=== PATIENT | female | born 1970 | race Caucasian/White ===

== ENCOUNTER → 2018-10-15 | Outpatient (CLI) | payer OTHER ==
--- NOTE | 2018-10-15 19:11 | XR ---
EXAMINATION TYPE: XR chest 2V DATE OF EXAM: 10/15/2018 COMPARISON: 03/27/2015 HISTORY: 48-year-old female wheezing, smoker, R92.8. TECHNIQUE: PA and lateral views FINDINGS: The cardiomediastinal silhouette, aorta, and pulmonary vasculature are within normal limits. Unable t o exclude a right basilar nodule versus summation artifact. Otherwise, lungs and pleural spaces are c lear. IMPRESSION: No acute cardiopulmonary process. However, unable to exclude a right basilar pulmonary nodule versus summation artifact. Contrast enhanced CT chest can further evaluate especially given the patient's sm oking history.
--- NOTE | 2018-10-18 09:25 | MM ---
Reason for exam: screening (asymptomatic). Last mammogram was performed 3 years and 2 months ago. History: Family history of premenopausal breast cancer in paternal aunt at age 40. Benign US right guided mammotome of the right breast, July 24, 2005. Physical Findings: A clinical breast exam by your physician is recommended on an annual basis and results should be correlated with mammographic findings. MG 3D Screening Mammo W/Cad Bilateral CC and MLO view(s) were taken. XCCL view(s) were taken of the right breast. Prior study comparison: August 03, 2015, bilateral MG 3d screening mammo w/cad. June 09, 2014, bilateral MG screening mammo w CAD. The breast tissue is heterogeneously dense. This may lower the sensitivity of mammography. There are stable left upper outer quadrant middle depth masses x 2. There are two adjacent large right upper outer quadrant middle depth masses, likely cysts. There are also two smaller right breast masses that appear new. The first in the right upper outer quadrant 5cm from nipple measuring 4mm and the second in the right lower inner quadrant measuring 3mm, 6-7cm from nipple. No suspicious abnormality in the left breast. Right biopsy marker noted. ASSESSMENT: Incomplete: need additional imaging evaluation, BI-RAD 0 RECOMMENDATION: Ultrasound of the right breast. [facility] will attempt to contact patient to return for ultrasound.
== END | disposition home or self-care (01) ==
LOC: RADMAMWWP 14:37
PROVIDERS: ATTEND Internal Medicine Geriatric Medicine
DX: Z12.31 Encounter for screening mammogram for malignant neoplasm of breast (principal); R05 Cough
CPT/HCPCS: 71046; 77063; 77067

== ENCOUNTER → 2018-10-19 | Outpatient (CLI) | payer OTHER ==
--- NOTE | 2018-10-19 08:20 | USB ---
Reason for exam: additional evaluation requested from abnormal screening. History: Family history of premenopausal breast cancer in paternal aunt at age 40. Benign US right guided mammotome of the right breast, July 24, 2005. Physical Findings: Nurse Summary: right breast palpable 11 o'clock, 1 x 0.5cm, movable, tender (nurse ts). US Breast Workup Limited RT Right limited breast ultrasound including focal area of concern, retroareolar and axilla demonstrates a 0.4 x 0.3 x 0.5cm cystic lesion at 9 o'clock, a 2.2 x 1.4 x 1.2cm cystic lesion at 10 o'clock and a 0.2 x 0.3 x 0.3cm cystic lesion at 5 o'clock. These results were verbally communicated with the patient and result sheet given to the patient on 10/19/18. ASSESSMENT: Probably benign, BI-RAD 3 RECOMMENDATION: Ultrasound of the right breast in 6 months.
== END | disposition home or self-care (01) ==
LOC: RADUSWWP 07:31
PROVIDERS: ATTEND Internal Medicine Geriatric Medicine
DX: R92.8 Other abnormal and inconclusive findings on diagnostic imaging of breast (principal)

== ENCOUNTER → 2021-09-13 | Outpatient (CLI) | payer OTHER ==
--- NOTE | 2021-09-17 08:15 | MM ---
Reason for Exam: Screening (asymptomatic). Last mammogram was performed 2 year(s) and 11 month(s) ago. Patient History: Menarche at age 12. First Full-Term at age 18. Hysterectomy at age 45. 07/24/2005, Benign Core Biopsy on the right side. Paternal aunt had breast cancer, age 40. Risk Values: Leonila 5 year model risk: 0.9%. NCI Lifetime model risk: 7.5%. Film Views: Bilateral CC views were taken. Bilateral MLO views were taken. Prior Study Comparison: 06/09/2014 Bilateral Screening Mammogram, [facility]. 08/03/2015 Bilateral Screening Mammogram, [facility]. 10/15/2018 Bilateral Screening Mammogram, [facility]. Tissue Density: The breast tissue is heterogeneously dense. This may lower the sensitivity of mammography. Findings: Analyzed By CAD. Biopsy clip right breast redemonstrated. There is enlarging group of rounded raisa masses in the right breast middle depth slightly upper outer aspect measuring up to 2.9 cm in size. Stable smaller chronic nodularity in the left breast centrally on CC view. Overall Assessment: Incomplete: need additional imaging evaluation, BI-RAD 0 Management: Diagnostic Breast Ultrasound of the right breast. Targeted ultrasound right breast now. Electronically signed and approved by: Brett Claudio M.D.
== END | disposition home or self-care (01) ==
LOC: RADMAMWWP 12:55
PROVIDERS: ATTEND Obstetrics & Gynecology
DX: Z12.31 Encounter for screening mammogram for malignant neoplasm of breast (principal)
CPT/HCPCS: 77063; 77067

== ENCOUNTER 2022-04-05 22:43 | Emergency (ER) | payer BC, OTHER ==
--- NOTE | 2022-04-05 23:51 | ED ---
General Adult HPI - General Chief complaint: Extremity Injury, Lower Stated complaint: Possible clot in right ankle Time Seen by Provider: 04/05/22 23:16 Source: patient, RN notes reviewed Mode of arrival: ambulatory Limitations: no limitations - History of Present Illness Initial comments: 51-year-old female presents to the emergency department for evaluation of right lower extremity edema, worsening past 2-3 days. Has mild erythema of the right foot. No injury or trauma. Does complain of mild right calf pain. Patient states she had Covid last week and her PCP is concerned about possible DVT. Reports ongoing cough. Denies fever, chills, headache, chest pain, shortness of breath, abdominal pain, nausea, vomiting, diarrhea, and dysuria. - Related Data Allergies Allergy/AdvReac Type Severity Reaction Status Date / Time No Known Allergies Allergy Verified 04/05/22 22:55 Review of Systems ROS Statement: Those systems with pertinent positive or pertinent negative responses have been documented in the HPI. ROS Other: All systems not noted in ROS Statement are negative. Past Medical History Past Medical History: No Reported History Additional Past Medical History / Comment(s): covid - march 2022 History of Any Multi-Drug Resistant Organisms: None Reported Past Surgical History: Back Surgery, Section, Hysterectomy Past Psychological History: No Psychological Hx Reported Smoking Status: Current every day smoker Past Alcohol Use History: Rare Past Drug Use History: None Reported General Exam Limitations: no limitations General appearance: alert, in no apparent distress Respiratory exam: Present: normal lung sounds bilaterally, other (dry nonproductive cough). Absent: respiratory distress, wheezes, rales, rhonchi, stridor, chest wall tenderness Cardiovascular Exam: Present: regular rate, normal rhythm, normal heart sounds. Absent: systolic murmur, diastolic murmur, rubs, gallop, clicks GI/Abdominal exam: Present: soft, normal bowel sounds. Absent: distended, tenderness, guarding, rebound, rigid Right Upper Leg exam: Present: normal inspection, full ROM. Absent: tenderness, swelling Knee exam: Present: normal inspection, full ROM. Absent: tenderness, swelling Lower Leg exam: Present: normal inspection, full ROM, Homans' sign. Absent: swelling, erythema Ankle exam: Present: full ROM, swelling. Absent: tenderness Foot/Toe exam: Present: swelling (right foot more swollen than left; mild erythema of right foot; +2 pedal pulses bilaterally). Absent: tenderness Neurovascular tendon exam: Present: no vascular compromise Gait: observed and normal Neurological exam: Present: alert, oriented X3, CN II-XII intact Psychiatric exam: Present: normal affect, normal mood Skin exam: Present: warm, dry, intact. Absent: rash Course Vital Signs 04/05/22 04/06/22 22:45 02:48 Temperature 98.3 F 98.2 F Pulse Rate 81 75 Respiratory 18 16 Rate Blood Pressure 148/77 124/71 O2 Sat by Pulse 96 95 Oximetry - Reevaluation(s) Reevaluation #1: 04/06/22 02:28 Results were discussed with patient. Discussed discharge plan of care including follow up with PCP for further evaluation and treatment. Medical Decision Making - Medical Decision Making This is a 51-year-old female with a recent Covid illness who [facility] with complaints of right lower extremity edema and concern for DVT. Upon exam, patient is well-appearing and in no acute distress. She is able to ambulate without difficulty. She does have mild circumferential swelling of the right ankle and right calf pain. There is some mild erythema of the right foot, though not significant, nor concerning for cellulitis. +2 pedal and posttibial pulses. Patient does have a residual cough therefore chest x-ray was obtained and is unremarkable. Doppler study of the right lower extremity was negative for DVT. Patient is reassured by these findings and will follow-up with her PCP for R recheck next week. Return parameters were discussed in detail. Patient verbalizes understanding and agrees with this plan. Attending: Stacy - Radiology Data Radiology results: report reviewed, image reviewed Interpreted by me: Chest x-ray as interpreted by me shows no evidence of consolidation or infiltrate. Two-view chest x-ray was obtained. Report was reviewed in its entirety. Impression per Dr. Hunt is normal chest. No adverse change. Venous Doppler study of the right lower extremity was obtained. Report was reviewed in its entirety. Impression per Dr. Olguin is no evidence of deep vein thrombosis in the right leg. Disposition Clinical Impression: Cough, Edema of right lower extremity Disposition: HOME SELF-CARE Condition: Stable Instructions (If sedation given, give patient instructions): Leg Edema (ED) Additional Instructions: Follow up with your PCP for a recheck. Call office on Thursday. Keep legs elevated while at rest. Return to the emergency department with any new, worsening, or concerning symptoms. Is patient prescribed a controlled substance at d/c from ED?: No Referrals: Cesia Adler NPC [Primary Care Provider] - 1-2 days Time of Disposition: 02:31
--- NOTE | 2022-04-06 00:26 | US ---
EXAMINATION TYPE: US venous doppler duplex LE RT DATE OF EXAM: 04/06/2022 12:09 AM COMPARISON: NONE CLINICAL HISTORY: RLE edema. Right ankle swelling x 3 days. No hx of DVT, not on blood thinners. Pt s tates she had COVID last week SIDE PERFORMED: Right TECHNIQUE: The lower extremity deep venous system is examined utilizing real time linear array sonog best with graded compression, doppler sonography and color-flow sonography. VESSELS IMAGED: Common Femoral Vein Deep Femoral Vein Greater Saphenous Vein * Femoral Vein Popliteal Vein Small Saphenous Vein * Proximal Calf Veins (* superficial vessels) Right Leg: Negative for DVT IMPRESSION: No evidence of deep vein thrombosis in the right leg.
--- NOTE | 2022-04-06 00:37 | XR ---
EXAMINATION TYPE: XR chest 2V DATE OF EXAM: 04/06/2022 COMPARISON: 10/15/2018 HISTORY: Chest congestion TECHNIQUE: 2 views FINDINGS: Heart and mediastinum are normal. Lungs are clear. Diaphragm is normal. Bony thorax is inta ct over the vascularity is normal. IMPRESSION: Normal chest. No adverse change.
[2022-04-06 02:57] VITALS: BP 124/71; PULSE 75; RESP 16; TEMP 98.2
== END 2022-04-06 02:48 | disposition home or self-care (01) ==
LOC: EC 22:43
DX: R05.9 Cough, unspecified (principal); R60.0 Localized edema; F17.200 Nicotine dependence, unspecified, uncomplicated
CPT/HCPCS: 71046; 99284; 99285

== ENCOUNTER 2022-07-07 07:02 | Day surgery (SDC) | payer BC ==
[2022-07-01 12:40] VITALS: BMI 33.4
--- NOTE | 2022-07-06 19:27 | P.GSHP ---
History of Present Illness H&P Date: 07/06/22 Chief Complaint: Left flank pain The patient is a 51-year-old white female with no prior history of urolithiasis. For the past year, she has experienced intermittent left flank pain. CT scan shows a 6 mm left upper pole renal calculus, also seen on a plain radiograph. The patient was offered the options of observation, extracorporal shockwave lithotripsy (ESWL), and ureteroscopy with laser lithotripsy. The pros, cons, and risks of each were reviewed. She has elected to undergo ESWL and comes for this reason. - Constitutional Constitutional: Denies chills, Denies fever - Gastrointestinal Gastrointestinal: Denies nausea, Denies vomiting - Genitourinary (Female) Genitourinary: Reports flank pain, Reports kidney stones, Denies dysuria, Denies hematuria Past Medical History Past Medical History: No Reported History Additional Past Medical History / Comment(s): covid - march 2022. KIDNEY STONES History of Any Multi-Drug Resistant Organisms: None Reported Past Surgical History: Back Surgery, Section, Hysterectomy Past Anesthesia/Blood Transfusion Reactions: Postoperative Nausea & Vomiting (PONV) Smoking Status: Current every day smoker - Past Family History Mother Family Medical History: No Reported History Father History Unknown: Yes Family Medical History: Cancer Medications and Allergies Home Medications Medication Instructions Recorded Confirmed Type Ibuprofen [Motrin] 800 mg PO Q8H PRN 07/01/22 07/01/22 History Allergies Allergy/AdvReac Type Severity Reaction Status Date / Time No Known Allergies Allergy Verified 07/01/22 12:28 Surgical - Exam - General well developed, well nourished, no distress - Neck no masses, trachea midline - Abdomen Abdomen: soft, non tender, no guarding, no rigid, no rebound - Psychiatric oriented to time, oriented to person, oriented to place, speech is normal, memory intact Results - Imaging Abdominal x-ray: report reviewed, image reviewed CT scan - abdomen: report reviewed, image reviewed Assessment and Plan (1) Calculus of kidney Status: Acute Code(s): N20.0 - CALCULUS OF KIDNEY SNOMED Code(s): 10064529 Plan: Left ESWL. Patient understands risks to include anesthesia, renal contusion, perinephric hematoma, treatment failure, and [place]. She is aware of the possible need for secondary treatment.
--- NOTE | 2022-07-07 07:35 | XR ---
EXAMINATION TYPE: XR KUB DATE OF EXAM: 07/07/2022 7:18 AM CLINICAL HISTORY: Low back pain. Left-sided kidney stone. TECHNIQUE: Single supine KUB image of the abdomen is obtained. COMPARISON: None. FINDINGS: There is 6 mm round calculus upper pole left kidney. No definitive right-sided nephrolithia sis. Overall nonobstructive bowel gas pattern. Visualized osseous structures are intact. IMPRESSION: As above.
[2022-07-07] MEDS ORDERED: LIDOCAINE 1% (10MG/ML) FOR IV START INTRADERMA PRN (08:08)
[2022-07-07] MEDS ORDERED: fentaNYL (PF) 50 MCG/ML 2 ML AMP IV PRN (08:08)
[2022-07-07] MEDS ORDERED: ONDANSETRON 4 MG/2 ML VIAL IVP PRN (08:08)
[2022-07-07 08:19] VITALS: TEMP 97.1
[2022-07-07] MEDS: LACTATED RINGERS 1,000 ML IV SCH ×2 (08:25→08:28)
[2022-07-07] MEDS ORDERED: KETAMINE 10 MG/ML 20 ML VIAL ONE (08:30)
[2022-07-07] MEDS ORDERED: HYDROmorphone (PF) 1 MG/ML ONE (08:30)
[2022-07-07] MEDS ORDERED: fentaNYL (PF) 50 MCG/ML 2 ML AMP ONE (08:30)
[2022-07-07] MEDS ORDERED: PROPOFOL 10 MG/ML 20 ML VIAL IV ONE (08:30)
[2022-07-07] MEDS ORDERED: MIDAZOLAM 2 MG/2 ML VIAL ONE (08:30)
--- NOTE | 2022-07-07 09:29 | P.OP ---
Date of Procedure: 07/07/22 Preoperative Diagnosis: Left renal calculus Postoperative Diagnosis: Same Procedure(s) Performed: Left extracorporal shockwave lithotripsy (ESWL) Anesthesia: MAC Surgeon: Judson Franz Estimated Blood Loss (ml): 0 IV fluids (ml): 600 Pathology: none sent Condition: stable Disposition: PACU Indications for Procedure: The patient is a 51-year-old white female with no prior history of urolithiasis. For the past year, she has experienced intermittent left flank pain. CT scan shows a 6 mm left upper pole renal calculus, also seen on a plain radiograph. The patient was offered the options of observation, extracorporal shockwave lithotripsy (ESWL), and ureteroscopy with laser lithotripsy. The pros, cons, and risks of each were reviewed. She has elected to undergo ESWL and comes for this reason. Operative Findings: The calculus was difficult to visualize, but appeared to fragment. Description of Procedure: The patient was taken to the operating room and placed on the [employer] D elta II lithotripter in the supine position. The calculus was seen on biplanar fluoroscopy. Once the patient was properly positioned and sedated, lithotripsy was performed. The energy level was gradually increased per protocol, to an energy level of 5. After 200 shocks were administered, a 2 minute pause was instituted per protocol. A total of 2500 shocks were given at a rate of 80 shocks per minute. Fluoroscopy was utilized at a minimum to ensure proper positioning and determine the treatment status. The appearance of the calculus appeared to change, suggesting fragmentation had occurred. The patient tolerated the procedure well was taken to the recovery room in stable condition. Instructions were given to strain the urine, and the patient will follow-up within one week.
[2022-07-07] MEDS ORDERED: HYDROcodone/APAP 5-325MG 1 EACH TAB ONE (09:59)
[2022-07-07 10:23] VITALS: BP 110/66; PULSE 58; RESP 16
== END 2022-07-07 10:58 | disposition home or self-care (01) ==
LOC: ORWHC2ENDO 07:02
PROVIDERS: ATTEND Urology
DX: N20.0 Calculus of kidney (principal); Z86.16 Personal history of COVID-19; F17.200 Nicotine dependence, unspecified, uncomplicated; G47.33 Obstructive sleep apnea (adult) (pediatric); Z79.1 Long term (current) use of non-steroidal anti-inflammatories (NSAID); Z98.890 Other specified postprocedural states
CPT/HCPCS: 50590; 74018; J2250; J2405; J3010; J1170; J2704

== ENCOUNTER → 2022-12-24 | Outpatient (CLI) | payer BC ==
--- NOTE | 2022-12-24 11:39 | XR ---
EXAMINATION TYPE: XR KUB DATE OF EXAM: 12/24/2022 COMPARISON: 07/07/2022 HISTORY: Renal calculus, left ureteral calculus TECHNIQUE: AP abdomen FINDINGS: Previous superior pole left renal calculus is not identified. Psoas margins are normal. Organomegaly is not evident. Colonic bowel gas is present. IMPRESSION: 1. Nonvisualization of prior calcification upper pole left kidney.
== END | disposition home or self-care (01) ==
LOC: RADXRMAIN 11:11
PROVIDERS: ATTEND Urology
DX: N20.0 Calculus of kidney (principal); N28.89 Other specified disorders of kidney and ureter
CPT/HCPCS: 74018

== ENCOUNTER 2023-02-12 08:28 | Day surgery (SDC) | payer BC ==
[2023-02-09 15:20] VITALS: BMI 33.4
--- NOTE | 2023-02-11 21:47 | P.GSHP ---
History of Present Illness H&P Date: 02/11/23 Chief Complaint: Flank pain The patient is a 52-year-old white female with a history of urolithiasis. Earlier this year, she experienced intermittent left flank pain and computed tomography scan showed a 6 mm left upper pole renal calculus. The calculus was difficult to visualize on a plain radiograph. She underwent ESWL on 07/07/2022. She continues to experience left flank and groin pain. A calculus is no longer seen on a plain radiograph. CT scan shows a 3 mm left upper pole renal calculus. It was explained to the patient that this may not be the cause of her pain. The pros and cons of ureteroscopic removal of the calculus were discussed in detail, and the patient has elected to proceed. - Constitutional Constitutional: Denies chills, Denies fever - Gastrointestinal Gastrointestinal: Denies nausea, Denies vomiting - Genitourinary (Female) Genitourinary: Reports flank pain, Reports kidney stones, Denies hematuria Past Medical History Past Medical History: Hyperlipidemia Additional Past Medical History / Comment(s): KIDNEY STONES History of Any Multi-Drug Resistant Organisms: None Reported Past Surgical History: Back Surgery, Section, Hysterectomy Additional Past Surgical History / Comment(s): LITHOTRIPSY Past Anesthesia/Blood Transfusion Reactions: Postoperative Nausea & Vomiting (PONV) Smoking Status: Current every day smoker - Past Family History Mother Family Medical History: No Reported History Father History Unknown: Yes Family Medical History: Cancer Medications and Allergies Home Medications Medication Instructions Recorded Confirmed Type Ibuprofen [Motrin] 800 mg PO Q8H PRN 07/01/22 02/09/23 History Allergies Allergy/AdvReac Type Severity Reaction Status Date / Time No Known Allergies Allergy Verified 02/09/23 14:51 Surgical - Exam - General well developed, well nourished, no distress - Neck no masses, trachea midline - Respiratory normal respiratory effort - Abdomen Abdomen: soft, non tender, no guarding, no rigid, no rebound - Psychiatric oriented to time, oriented to person, oriented to place, speech is normal, memory intact Results - Imaging CT scan - abdomen: report reviewed, image reviewed Assessment and Plan (1) Calculus of kidney Status: Acute Code(s): N20.0 - CALCULUS OF KIDNEY SNOMED Code(s): 50087463 Plan: Cystoscopy, left retrograde pyelogram, left ureteroscopy with Holmium laser lithotripsy and/or stone basketing, left ureteral stent insertion. The procedure has been reviewed in detail with the patient. She has been made aware of potential risks, which include anesthesia, bleeding, infection, inability to remove the calculus, and persistent pain.
[~2023-02-12 08:28] MED LIST: DEXAMETHASONE SOD PHOSPHATE 4 MG/ML 1 ML VIAL IV ONE; HYDROmorphone 0.5 MG/0.5 ML SYRINGE IVP PRN; LACTATED RINGERS 1,000 ML IV SCH; ONDANSETRON 4 MG/2 ML VIAL IVP ONE
[2023-02-12] MEDS ORDERED: ONDANSETRON 4 MG/2 ML VIAL IVP ONE (09:16)
[2023-02-12] MEDS ORDERED: DEXAMETHASONE SOD PHOSPHATE 4 MG/ML 1 ML VIAL IVP ONE (09:17)
[2023-02-12] MEDS ORDERED: GLYCOPYRROLATE 0.2 MG/ML 2 ML VIAL ONE (10:40)
[2023-02-12] MEDS ORDERED: KETOROLAC 30 MG/ML 1 ML VIAL ONE (10:40)
[2023-02-12] MEDS ORDERED: ALBUTEROL HFA INHALER INHALATION ONE (10:40)
[2023-02-12] MEDS ORDERED: PROPOFOL 10 MG/ML 20 ML VIAL IV ONE (10:40)
[2023-02-12] MEDS ORDERED: LIDOCAINE 1% INJ 10MG/ML (20 ML MDV) ONE (10:40)
[2023-02-12] MEDS ORDERED: NEOSTIGMINE 1 MG/ML 10 ML VIAL ONE (10:40)
[2023-02-12] MEDS ORDERED: MIDAZOLAM 2 MG/2 ML VIAL ONE (10:40)
[2023-02-12] MEDS ORDERED: fentaNYL (PF) 50 MCG/ML 2 ML AMP ONE (10:40)
[2023-02-12] MEDS ORDERED: ROCURONIUM 10 MG/ML (5 ML VIAL) IV ONE (10:40)
[2023-02-12] MEDS ORDERED: SUCCINYLCHOLINE CHLORIDE 200 MG/10 ML VIAL IV ONE (10:40)
[2023-02-12] MEDS ORDERED: IOPAMIDOL-370 100ML BTL MISCELLANE ONE (11:15)
[2023-02-12] MEDS ORDERED: LACTATED RINGERS 1,000 ML IV ONE (11:32)
--- NOTE | 2023-02-12 11:51 | FL ---
Intraoperative/procedural fluoroscopic services were provided. Total fluoroscopy time is 21.2 seconds with a total of 6 submitted images to PACS. Please see the operative/procedural note for further det ails. DAP: 7.5341 Gycm2
--- NOTE | 2023-02-12 12:01 | P.OP ---
Date of Procedure: 02/12/23 Preoperative Diagnosis: Left renal calculus Postoperative Diagnosis: Same Procedure(s) Performed: Cystoscopy, left retrograde pyelogram, left ureteroscopy with Holmium laser lithotripsy and stone basketing Anesthesia: MARLEN Surgeon: Judson Franz Estimated Blood Loss (ml): 0 IV fluids (ml): 500 Pathology: other (Left renal calculus fragment, sent for chemical analysis) Condition: stable Disposition: PACU Indications for Procedure: The patient is a 52-year-old white female with a history of urolithiasis. Earlier this year, she experienced intermittent left flank pain and computed tomography scan showed a 6 mm left upper pole renal calculus. The calculus was difficult to visualize on a plain radiograph. She underwent ESWL on 07/07/2022. She continues to experience left flank and groin pain. A calculus is no longer seen on a plain radiograph. CT scan shows a 3 mm left upper pole renal calculus. It was explained to the patient that this may not be the cause of her pain. The pros and cons of ureteroscopic removal of the calculus were discussed in detail, and the patient has elected to proceed. Operative Findings: Submucosal left upper pole renal calculus, fragmented completely. Description of Procedure: The patient was taken to the operating room and placed in the dorsolithotomy position, with legs supported in Jonny stirrups. The external genitalia was prepped and draped sterilely. The 30 lens was used to introduce the 21-Colombian Churchill cystoscopic sheath through the urethra and into the bladder under direct vision. The bladder was examined in its entirety. Both ureteral orifices were normal anatomic location and configuration, and clear urine effluxed from both. No tumors or foreign bodies were seen. Using a 10-Colombian cone-tipped catheter, a left retrograde pyelogram was performed. The study was normal, showing a ureter which was normal in course and caliber, and no filling defects. No calculi were seen. There was no evidence of hydronephrosis. The Churchill Disrupt[employer] flexible ureteroscope was passed into the bladder. The left ureteral orifice was cannulated, but the ureteroscope could only be advanced approximately 2 cm due to a decrease in the caliber of the ureter. A 0.038 inch Glidewire was passed through the ureteroscope, which was then removed. An 11- Colombian ureteral access catheter was passed over the wire, up to the proximal ureter. The access catheter was then removed along with the Glidewire, and the ureteroscope was replaced into the bladder. The left ureteral orifice was cannulated, and the ureteroscope was slowly advanced under direct vision, up to the left renal pelvis. Each calyx was examined. The only calculus seen measured several mm in diameter, within an upper pole calyx. There actually appeared to be several small adjacent calculi, as if the calculus had fragmented as a result of ESWL. A membrane covered these calculi, suggesting that the calculi are located submucosally. The 200 micron Holmium laser probe was passed through the ureteroscope, and lithotripsy was performed. After incising the mucosa and fragmenting the calculus, a 1.9-Colombian nitinol basket was used to remove the calculus fragments, all of which were smaller than 1 mm in size. Pullout ureteroscopy showed no evidence of ureteral trauma. The patient tolerated the procedure well and was taken to the recovery room in stable condition. [facility] Report: Procedure Acuity: Elective Stone Size and Location: 4-5 mm, left upper pole Ureteral Dilation: Serial Dilation Ureteral Access Sheath Used: No Stone Sent for Analysis: Yes All Stones/Fragments Were Removed with a Basket: Yes Complications: No Preoperative Antibiotics Given: Yes Stent Placed: No Discharge Medications: Toradol
[2023-02-12 12:12] VITALS: TEMP 97.5
[2023-02-12 13:14] VITALS: BP 140/63; PULSE 66; RESP 22
== END 2023-02-12 13:42 | disposition home or self-care (01) ==
LOC: OR 08:28
PROVIDERS: ATTEND Urology
DX: N20.0 Calculus of kidney (principal); E78.5 Hyperlipidemia, unspecified; F17.200 Nicotine dependence, unspecified, uncomplicated; Z87.442 Personal history of urinary calculi; Z90.710 Acquired absence of both cervix and uterus; Z98.891 History of uterine scar from previous surgery; Z98.890 Other specified postprocedural states; Z79.899 Other long term (current) drug therapy
CPT/HCPCS: 82365; 52353; C1758; C1769; J2250; J0330; J1100; J2710; J0690; J2405; J2001; J3010; J1885; J2704; J1170; Q9967

== ENCOUNTER → 2023-04-17 | Outpatient (CLI) | payer BC ==
--- NOTE | 2023-04-19 23:15 | MR ---
EXAMINATION TYPE: MR knee LT wo con DATE OF EXAM: 04/17/2023 COMPARISON: None available HISTORY: Left knee pain and swelling x2 months TECHNIQUE: Multiplanar, multisequence imaging of the left knee is performed without contrast. FINDINGS: Medial meniscus: Intact. Medial compartment cartilage: Normal. Medial collateral ligament: Mild deep and superficial periligamentous edema surrounds the MCL, sugges ting low-grade sprain Lateral meniscus: Intact. Lateral compartment cartilage: Normal. Lateral collateral ligament: Intact. Patellofemoral alignment: Normal. Patellofemoral compartment cartilage: Mild fibrillation/fissuring in the patellar apex cartilage Extensor mechanism: Normal. Anterior cruciate ligament: Intact. Posterior cruciate ligament: Intact. Bone marrow: Normal. Soft tissues: Moderate joint effusion. Trace Leyva's cyst. Neurovascular: Normal. IMPRESSION: 1. Low-grade MCL sprain. 2. Patellar chondromalacia
== END | disposition home or self-care (01) ==
LOC: RADMRIMAIN 20:30
PROVIDERS: ATTEND Student in an Organized Health Care Education/Training Program
DX: M22.42 Chondromalacia patellae, left knee (principal); M23.632 Other spontaneous disruption of medial collateral ligament of left knee; R93.6 Abnormal findings on diagnostic imaging of limbs; W19.XXXA Unspecified fall, initial encounter

== ENCOUNTER → 2023-05-11 | Outpatient (CLI) | payer BC ==
--- NOTE | 2023-05-11 17:39 | US ---
EXAMINATION TYPE: US kidneys/renal and bladder DATE OF EXAM: 05/11/2023 COMPARISON: NONE CLINICAL INDICATION: Female, 52 years old with history of N20.0 CALCULUS OF KIDNEY; hx left kidney st one removal EXAM MEASUREMENTS: Right Kidney: 9.6x4.6x4.6 cm Left Kidney: 10.0x5.0x4.6 cm Right Kidney: Inferior pole obscured by bowel gas. No hydronephrosis. Left Kidney: No hydronephrosis or masses seen Bladder: wnl Bilateral Jets seen: Yes IMPRESSION: No hydronephrosis on either side.
== END | disposition home or self-care (01) ==
LOC: RADUSWWP 16:13
PROVIDERS: ATTEND Urology
DX: N20.0 Calculus of kidney (principal)
CPT/HCPCS: 76770

== ENCOUNTER → 2023-05-18 | Outpatient (CLI) | payer BC ==
--- NOTE | 2023-05-18 13:10 | USB ---
Reason for Exam: Additional evaluation requested from abnormal screening. Patient History: Menarche at age 12. First Full-Term at age 18. Hysterectomy at age 45. 07/24/2005, Benign Core Biopsy on the right side. Paternal aunt had breast cancer, age 40. Risk Values: Leonila 5 year model risk: 0.9%. NCI Lifetime model risk: 7.4%. Technique: Method: Whole Breast Handheld. Prior Study Comparison: 08/03/2015 Bilateral Screening Mammogram, [facility]. 10/15/2018 Bilateral Screening Mammogram, [facility]. 09/13/2021 Bilateral MG 3D screening mammo w/cad, [facility]. Findings: The whole breast of the right breast, the axilla of the right breast and the retroareolar of the right breast were scanned. Simple cyst right 10:00 position measuring 1.8 x 1.3 cm. Adjacent 11:00 mildly complex cystic lesion measuring 1.1 x 0.8 cm. Additional smaller complex cysts measuring 0.5 x 0.3 cm at 12:00. No solid mass is seen. Overall Assessment: Probably benign, BI-RAD 3 Management: Diagnostic Breast Ultrasound of the right breast in 6 months. A clinical breast exam by your physician is recommended on an annual basis and results should be correlated with mammographic findings. This exam should not preclude additional follow-up of suspicious palpable abnormalities. Results were given to the patient verbally at the time of exam. Electronically signed and approved by: Darnell Lorenzana M.D. Radiologis
== END | disposition home or self-care (01) ==
LOC: RADUSWWP 12:17
PROVIDERS: ATTEND Obstetrics & Gynecology
DX: N63.10 Unspecified lump in the right breast, unspecified quadrant (principal); Z90.710 Acquired absence of both cervix and uterus; Z80.3 Family history of malignant neoplasm of breast

== ENCOUNTER → 2023-12-28 | Outpatient (CLI) | payer BC ==
--- NOTE | 2023-12-28 15:16 | CT ---
EXAMINATION TYPE: CT abdomen pelvis wo/w con DATE OF EXAM: 12/28/2023 COMPARISON: None HISTORY: RT SIDE ABDOMINAL PAIN CT DLP: 2494.1 mGycm Automated exposure control for dose reduction was used. TECHNIQUE: Helical acquisition of images was performed from the lung bases through the pelvis. CONTRAST: Performed with Oral Contrast and without and with IV Contrast, patient injected with 100 mL of Isovue 300. FINDINGS: The lung bases are clear. The gallbladder is normal without distention, wall thickening, pericholecystic fluid or gallstones. T here is no biliary ductal dilatation. There is no focal mass or organomegaly involving the liver, pancreas, spleen or adrenal glands. There are no renal calcifications. There is no solid renal mass or hydronephrosis and there is homoge neous contrast enhancement of the renal parenchyma. The caliber the abdominal aorta is normal is no r etroperitoneal adenopathy or hemorrhage. The bowel loops are normal in caliber and there is no evidence of dilatation or obstruction. No infla mmatory changes are identified in the bowel wall or mesentery. There is no free intraperitoneal air or fluid. No pelvic mass, free fluid, abscess or adenopathy. 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 The osseous structures and soft tissues are intact. IMPRESSION: No significant abnormality seen.
== END | disposition home or self-care (01) ==
LOC: RADCTMAIN 13:07
PROVIDERS: ATTEND Student in an Organized Health Care Education/Training Program
DX: R10.84 Generalized abdominal pain (principal); R10.2 Pelvic and perineal pain
CPT/HCPCS: 74178

== ENCOUNTER 2024-09-21 09:47 | Emergency (ER) | payer BC ==
[2024-09-21 10:02] VITALS: RESP 20
--- NOTE | 2024-09-21 10:25 | ED ---
Skin/Abscess/FB HPI - General Chief complaint: Skin/Abscess/Foreign Body Stated complaint: Insect Bite Time Seen by Provider: 09/21/24 10:10 Source: patient, RN notes reviewed Mode of arrival: ambulatory Limitations: no limitations - History of Present Illness Initial comments: 54-year-old female presented the ER for evaluation of a spider bite. Patient reports on Thursday she was bit by a spider for which her believes it was a "brown recluse" to her right lower leg. She states since then she has been having pain and swelling to injury site. She was started on doxycycline by PCP yesterday she has taken 3 doses of this. She states since starting doxycycline redness has worsened which prompted emergency department visit. She denies any drainage, fevers, chills. Tetanus status unknown. Patient states she is concerned of worsening infection as she has been looking at photos online. No other complaints. - Related Data Home Medications Medication Instructions Recorded Confirmed Ibuprofen [Motrin] 800 mg PO Q8H PRN 07/01/22 02/09/23 Previous Rx's Medication Instructions Recorded Ketorolac [Toradol] 10 mg PO Q6HR PRN #10 tab 02/12/23 Allergies Allergy/AdvReac Type Severity Reaction Status Date / Time No Known Allergies Allergy Verified 02/09/23 14:51 Review of Systems ROS Statement: Those systems with pertinent positive or pertinent negative responses have been documented in the HPI. ROS Other: All systems not noted in ROS Statement are negative. Past Medical History Past Medical History: Hyperlipidemia Additional Past Medical History / Comment(s): KIDNEY STONES History of Any Multi-Drug Resistant Organisms: None Reported Past Surgical History: Back Surgery, Section, Hysterectomy Additional Past Surgical History / Comment(s): LITHOTRIPSY Past Anesthesia/Blood Transfusion Reactions: Postoperative Nausea & Vomiting (PONV) Past Psychological History: No Psychological Hx Reported Smoking Status: Current every day smoker - Past Family History Mother Family Medical History: No Reported History Father History Unknown: Yes Family Medical History: Cancer General Exam Limitations: no limitations General appearance: alert, in no apparent distress Respiratory exam: Present: normal lung sounds bilaterally. Absent: respiratory distress, wheezes, rales, rhonchi, stridor Cardiovascular Exam: Present: regular rate, normal rhythm, normal heart sounds. Absent: systolic murmur, diastolic murmur, rubs, gallop, clicks Extremities exam: Present: normal inspection, full ROM, normal capillary refill (2+ right DP pulse.). Absent: tenderness, pedal edema, joint swelling, calf tenderness Neurological exam: Present: alert, oriented X3, CN II-XII intact Skin exam: Present: warm, dry, intact, normal color, other (Approximately 5 cm in diameter area to right inner schwarz and deep red/violaceous hue. Mild surrounding erythema no purulent drainage and wounds or fluctuance) Course Vital Signs 09/21/24 09/21/24 09:58 12:23 Temperature 98.4 F 98.1 F Pulse Rate 100 85 Respiratory 20 20 Rate Blood Pressure 149/84 127/84 O2 Sat by Pulse 98 96 Oximetry - Reevaluation(s) Reevaluation #1: 09/21/24 11:46 Patient reevaluated. No signs of acute distress. Patient requesting discharge as she "has a concert to go to [employer]". Patient updated on laboratory results. Medical Decision Making - Medical Decision Making Was pt. sent in by a medical professional or institution (, PA, [employer], urgent care, hospital, or correction...) When possible be specific @ -No Did you speak to anyone other than the patient for history (EMS, parent, family, police, friend...)? What history was obtained from this source @ -Significant other, bedside, aiding in HPI past medical history. Did you review nursing and triage notes (agree or disagree)? Why? @ -I reviewed and agree with nursing and triage notes Were old charts reviewed (outside hosp., previous admission, EMS record, old EKG, old radiological studies, urgent care reports/EKG's, correction records)? Report findings @ -No old charts were reviewed Differential Diagnosis (chest pain, altered mental status, abdominal pain women, abdominal pain men, vaginal bleeding, weakness, fever, dyspnea, syncope, headache, dizziness, GI bleed, back pain, seizure, CVA, palpatations, mental health, musculoskeletal)? @ -Cellulitis, abscess, laceration, ulcer... This list is not meant to be all-inclusive EKG interpreted by me (3pts min.). @ -None done X-rays interpreted by me (1pt min.). @ -None done CT interpreted by me (1pt min.). @ -None done U/S interpreted by me (1pt. min.). @ -None done What testing was considered but not performed or refused? (CT, X-rays, U/S, labs)? Why? @ -None What meds were considered but not given or refused? Why? @ -None Did you discuss the management of the patient with other professionals (professionals i.e. , PA, [employer], lab, RT, psych nurse, social work msw, movement education specialist, teacher, parking enforcement officer, rifle case repairer)? Give summary @ -No Was smoking cessation discussed for >3mins.? @ -No Was critical care preformed (if so, how long)? @ -No Were there social determinants of health that impacted care today? How? (Homelessness, low income, unemployed, alcoholism, drug addiction, transportation, low edu. Level, literacy, decrease access to med. care, snf, r ehab)? @ -No Was there de-escalation of care discussed even if they declined (Discuss DNR or withdrawal of care, Hospice)? DNR status @ -No What co-morbidities impacted this encounter? (DM, HTN, Smoking, COPD, CAD, Cancer, CVA, ARF, Chemo, Hep., AIDS, mental health diagnosis, sleep apnea, morbid obesity)? @ -None Was patient admitted / discharged? Hospital course, mention meds given and route, prescriptions, significant lab abnormalities, going to OR and other pertinent info. @ -Discharge. 54-year-old female presented the ER for evaluation of a spider bite. Vital signs stable. Upon my evaluation, patient resting comfortably on stretcher no signs of acute distress. Exam remarkable for an approximately 5 cm of diameter deep red/violaceous rash with mild surrounding erythema to noted right anterior schwarz. There is no laceration, fluctuance, wound or purulent drainage present. Patient is neurovascularly intact. Patient requesting blood work and IV antibiotics. Laboratory studies obtained unremarkable. Tetanus updated. Patient provided with IV clindamycin and educated on today's finding. Admission was discussed with patient who refused stating "I have a concert" to attend [facility]. I advised her to continue oral doxycycline and follow-up closely with PCP. Area of concern outlined with skin makrer, I discussed with patient to monitor for any worsening of redness outside of these borders. Strict return parameters were discussed. Patient discharged in stable condition. Patient verbally expressed understanding agree with care plan. Case discussed with ED attending, . Undiagnosed new problem with uncertain prognosis? @ -No Drug Therapy requiring intensive monitoring for toxicity (Heparin, Nitro, Insulin, Cardizem)? @ -No Were any procedures done? @ -No Diagnosis/symptom? @ -Cellulitis Acute, or Chronic, or Acute on Chronic? @ -Acute Uncomplicated (without systemic symptoms) or Complicated (systemic symptoms)? @ -Uncomplicated Side effects of treatment? @ -No Exacerbation, Progression, or Severe Exacerbation? @ -No Poses a threat to life or bodily function? How? (Chest pain, [place], [place], pneumonia, PE, COPD, DKA, ARF, appy, cholecystitis, CVA, Diverticulitis, Homicidal, Suicidal, threat to staff... and all critical care pts) @ -Low at this time - Lab Data Result diagrams: 09/21/24 10:55 09/21/24 10:55 Lab Results 09/21/24 09/21/24 Range/Units 10:55 10:55 WBC 8.13 (4.50-10.00) 10*3/uL RBC 4.38 (4.10-5.20) 10*6/uL Hgb 13.6 (12.0-15.0) g/dL Hct 39.6 (37.2-46.3) % MCV 90.4 (80.0-97.0) fL MCH 31.1 (27.0-32.0) pg MCHC 34.3 (32.0-37.0) g/dL Plt Count 273 (140-440) 10*3/uL MPV 9.8 (9.5-12.2) fL Immature Gran % (Auto) 0.2 % Neutrophils % 67.6 % Lymphocytes % 22.6 % Monocytes % 7.9 % Eosinophils % 1.2 % Basophils % 0.5 % Immature Gran # 0.02 (0.00-0.04) 10*3/uL Neutrophils # 5.49 (1.80-7.70) 10*3/uL Lymphocytes # 1.84 (0.90-5.00) 10*3/uL Monocytes # 0.64 (0.20-1.00) 10*3/uL Eosinophils # 0.10 (0.04-0.35) 10*3/uL Basophils # 0.04 (0.00-0.10) 10*3/uL Sodium 136 L (137-145) mmol/L Potassium 4.2 (3.5-5.1) mmol/L Chloride 103 (98-107) mmol/L Carbon Dioxide 26 (22-30) mmol/L Anion Gap 7 mmol/L BUN 15 (7-17) mg/dL Creatinine 0.52 (0.52-1.04) mg/dL Est GFR (CKD-EPI)AfAm >90 (>60 ml/min/1.73 sqM) Est GFR (CKD-EPI)NonAf >90 (>60 ml/min/1.73 sqM) Glucose 89 (74-99) mg/dL Calcium 9.5 (8.4-10.2) mg/dL Total Bilirubin 0.6 (0.2-1.3) mg/dL AST 30 (14-36) U/L ALT 19 (4-34) U/L Alkaline Phosphatase 74 (38-126) U/L Total Protein 6.6 (6.3-8.2) g/dL Albumin 4.0 (3.5-5.0) g/dL Disposition Clinical Impression: Cellulitis Disposition: HOME SELF-CARE Condition: Stable Instructions (If sedation given, give patient instructions): Cellulitis (ED) Additional Instructions: Continue taking doxycycline as prescribed. Follow-up closely with PCP in the next 24 to 48 hours for recheck. Return to the ER for any new or worsening concerns. Is patient prescribed a controlled substance at d/c from ED?: No Referrals: Edmundo Hayward MD [Primary Care Provider] - 1-2 days
[2024-09-21] MEDS: DIPH,PERTUS(ACELL)TETVAC-LF 0.5 ML VIAL IM ONE (10:37)
[2024-09-21 11:02] LABS: Basophils # (A) 0.04 10*3/uL (0.00-0.10); Basophils % (A) 0.5 %; Eosinophils % (A) 1.2 %; HCT 39.6 % (37.2-46.3); HGB 13.6 g/dL (12.0-15.0); Lymphocytes # (A) 1.84 10*3/uL (0.90-5.00); Lymphocytes % (A) 22.6 %; MCH 31.1 pg (27.0-32.0); MCHC 34.3 g/dL (32.0-37.0); MCV 90.4 fL (80.0-97.0); Mean Platelet Volume 9.8 fL (9.5-12.2); Monocytes # (A) 0.64 10*3/uL (0.20-1.00); Monocytes % (A) 7.9 %; Neutrophils # (A) 5.49 10*3/uL (1.80-7.70); Neutrophils % (A) 67.6 %; Platelet Count 273 10*3/uL (140-440); RBC 4.38 10*6/uL (4.10-5.20); RDW 13.8 % (11.5-14.5); WBC 8.13 10*3/uL (4.50-10.00)
[2024-09-21] MEDS: CLINDAMYCIN 600 MG in DEXTROSE 5% IN WATER 50 ML IVPB STA (11:11)
[2024-09-21 11:32] LABS: ALT 19 U/L (4-34); African American GFR (CKD) >90 (>60 ml/min/1.73 sqM); Anion Gap 7 mmol/L; Blood Urea Nitrogen 15 mg/dL (7-17); Calcium 9.5 mg/dL (8.4-10.2); Carbon Dioxide 26 mmol/L (22-30); Chloride 103 mmol/L (98-107); Glucose 89 mg/dL (74-99); Non-African American GFR(CKD) >90 (>60 ml/min/1.73 sqM); Sodium 136 mmol/L (137-145); Total Bilirubin 0.6 mg/dL (0.2-1.3); Total Protein 6.6 g/dL (6.3-8.2)
[2024-09-21 11:50] LABS: AST 30 U/L (14-36); Alkaline Phosphatase 74 U/L (38-126); Potassium 4.2 mmol/L (3.5-5.1)
[2024-09-21 12:26] VITALS: BP 127/84; PULSE 85; TEMP 98.1
== END 2024-09-21 12:26 | disposition home or self-care (01) ==
LOC: EC 09:47
DX: L03.115 Cellulitis of right lower limb (principal); F17.200 Nicotine dependence, unspecified, uncomplicated; Z23 Encounter for immunization
CPT/HCPCS: 36415; 80053; 85025; 90715; 99283; 96365; 90471; J0736